=== PATIENT | male | born 1945 | race Caucasian/White ===

== ENCOUNTER 2020-07-09 08:02 | Outpatient (CLI) | payer MEDICARE ==
--- NOTE | 2020-07-09 09:20 | CT ---
EXAM: CT ABDOMEN AND PELVIS HISTORY: Prostate cancer. Follow-up exam. COMPARISON: 08/25/2017 Procedure: Multiple contiguous axial images were obtained and a CT of the abdomen and pelvis with IV contrast. C oronal reformats were performed. FINDINGS: Lower Chest: within normal limits. Vessels: Atherosclerosis. Mild dilatation of the infrarenal abdominal aorta, measuring 2.5 x 2.5 cm. Heart: Normal heart size. Abdomen: Portal vein:Patent Gallbladder: No calcified gallstones. Normal caliber wall. Liver: within normal limits. Pancreas: within normal limits. Spleen: within normal limits. Adrenals: within normal limits. Kidneys: Surgically absent right kidney. With regard the left kidney, no abnormal enhancement or enha ncing masses. Peritoneum: No ascites or free air, no fluid collection. Bowel: Limited evaluation due to the lack of oral contrast administration. No evidence of bowel obstr uction. Ileocecal junction is unremarkable. Normal caliber appendix. Scattered fecal material in a nondistended, nondilated colon. Mesentery and Retroperitoneum: No enlarged mesenteric or retroperitoneal lymph nodes. Abdominal Wall: within normal limits. Pelvis: Reproductive Organs: Prostate gland is not enlarged. There is evidence of calcifications. There is mi ld stranding of the periprostate. There is some nonspecific hyperdensity along the inferior right aspect of the prostate gland, measuring 0.9 cm. Pelvis: No mass, lymphadenopathy, free air or free fluid. Bladder: Mild mucosal thickening of the bladder may be due to posttreatment change. Component of blad tony wall thickening may also be due to inadequate distention. Bones: There are no lytic or blastic lesions in the osseous structures. 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 There are moderate degenerative changes along the right acetabulum. IMPRESSION: No evidence of metastases. Transcribed Date/Time: 07/09/2020 11:12 AM
[2020-07-09] MEDS ORDERED: Iopamidol 370 76% 100 ML VIAL ONE (10:24)
--- NOTE | 2020-07-09 12:52 | NM ---
Whole body bone scan: 07/09/2020 COMPARISON: 02/12/2016 HISTORY: Prostate neoplasm, rising PSA TECHNIQUE: Anterior and posterior whole-body imaging is obtained following the intravenous administra tion of 30.2 mCi technetium 99m labeled MDP FINDINGS: Physiologic radiotracer activity overlies the left kidney and urinary bladder. Right kidney is nonvisualized suggesting surgical absence. No calvarial, spinal, pelvic, or long bone lesions. No rib lesions are seen. IMPRESSION: No scintigraphic evidence of osseous metastatic disease.
== END 2020-07-09 08:03 | disposition home or self-care (01) ==
LOC: CT 08:02
PROVIDERS: ATTEND Urology
DX: C61 Malignant neoplasm of prostate (principal)
CPT/HCPCS: 74177; 78306; 82565; A9503

== ENCOUNTER 2020-08-27 08:18 | Outpatient (CLI) | payer MEDICARE ==
--- NOTE | 2020-08-27 09:03 | ULT ---
Renal ultrasound: 08/27/2020 COMPARISON:09/02/2018 HISTORY:Malignant neoplasm TECHNIQUE: Multiplanar grayscale sonographic imaging of thekidneys and urinary bladder FINDINGS:The right kidney is absent. Right renal fossa grossly unremarkable. Left kidney measures 12. 1 cm in craniocaudal dimension. No hydronephrosis, stone, or mass lesion noted on the left. Urinary bladder demonstrates no acute findings. 14 cc post void residual noted. Prostate gland is heterogeneo us and prominent, not well assessed on this exam. There are calcifications within the prostate gland. IMPRESSION:Absent right kidney. Left kidney appears unremarkable.
== END 2020-08-27 08:19 | disposition home or self-care (01) ==
LOC: BICULT 08:18
PROVIDERS: ATTEND Urology
DX: C61 Malignant neoplasm of prostate (principal); C67.2 Malignant neoplasm of lateral wall of bladder; C65.1 Malignant neoplasm of right renal pelvis; Z90.5 Acquired absence of kidney
CPT/HCPCS: 76770

== ENCOUNTER 2020-12-31 13:52 | Outpatient (CLI) | payer MEDICARE ==
[2020-12-31 15:28] LABS: Bilirubin Neg (Negative); Blood, Urine 250 (Negative); Glucose, Urine (Dipstick) Normal (Negative); Ketone, Urine 5 mg/dL (Negative); Leukocyte 25 (Negative); Nitrite Negative (Negative); Protein, Urine (Dipstick) 30 mg/dl (Neg-Trace); Specific Gravity, Urine 1.015 (1.002-1.036); Urobilinogen Normal mg/dL (Less than 2)
[2020-12-31 15:29] LABS: Clarity Hazy (Clear)
[2020-12-31 15:43] LABS: Anion Gap 18 mmol/L (10-20); BUN (Urea Nitrogen) 30 mg/dL (8.4-25.7); Calc. Creatinine Clearance 0 mL/min (70-130); Calcium 9.4 mg/dL (7.8-10.44); Carbon Dioxide 21 mmol/L (23-31); Chloride 105 mmol/L (98-107); Glucose 127 mg/dL (83-110); Potassium 4.9 mmol/L (3.5-5.1); Sodium 139 mmol/L (136-145)
[2020-12-31 15:45] LABS: Bacteria/HPF Rare-Few HPF (None Seen); RBC/HPF 21-50 HPF (0-3); Squamous Epithelial 0-3 HPF (0-3); WBC/HPF 0-3 HPF (0-3)
[2020-12-31 16:12] LABS: #Basophils 0.1 10x3/uL (0.0-0.2); #Monocytes 0.8 10x3/uL (0.0-1.1); #Neutrophils 6.5 10x3/uL (1.5-8.4); %Basophils 0.8 % (0.0-2.0); %Eosinophils 0.4 % (0.0-6.0); %Monocytes 8.2 % (0.0-10.0); %Neutrophils 70.4 % (40.0-75.0); Hemoglobin 13.5 g/dL (13.5-17.5); Mean Corpuscular HGB CONC 34.3 g/dL (32.0-36.0); Mean Corpuscular Hemoglobin 33.3 pg (27.0-33.0); Mean Platelet Volume 9.6 fl (7.4-10.4); Platelet Count 244 10x3/uL (150-450); RBC Distribution Width 13.2 % (11.5-14.5); Red Blood Cell (RBC) Count 4.06 10x6/uL (4.32-5.72); White Blood Cell (WBC) Count 9.2 10x3/uL (3.5-10.5)
[2021-01-01 04:50] LABS: SARS-CoV-2 PCR by NAA Not Detected (NotDetected)
== END 2020-12-31 13:53 | disposition home or self-care (01) ==
LOC: LABBT 13:52
PROVIDERS: ATTEND Urology
DX: Z01.818 Encounter for other preprocedural examination (principal); Z20.822 Contact with and (suspected) exposure to COVID-19
CPT/HCPCS: 80048; 81001; 85025; 87086; 93005; U0003; U0005; 87635; 93010

== ENCOUNTER 2021-01-03 06:14 | Day surgery (SDC) | payer MEDICARE ==
[2021-01-02 10:42] VITALS: BMI 22.6
[2021-01-03] MEDS ORDERED: Levofloxacin 500 mg/D5W 100 ml Premix Bag ONE (06:26)
[2021-01-03] MEDS ORDERED: Iothalamate Meglumine 60% 50 ML VIAL FS ONE (08:49)
[2021-01-03] MEDS ORDERED: Lidocaine 1% PF 5 ML VIAL ONE (09:01)
[2021-01-03] MEDS ORDERED: PROPOFOL 200 MG/20 ML VIAL ONE (09:01)
[2021-01-03] MEDS ORDERED: Fentanyl 100 MCG/2 ML VIAL ONE ×3 (09:01→10:51)
[2021-01-03] MEDS ORDERED: Oxybutynin 5 MG TAB ONE (10:30)
[2021-01-03] MEDS ORDERED: Phenazopyridine HCl 100 MG TAB ONE (10:30)
[2021-01-03] MEDS ORDERED: HYDROcodone/Acetaminophen 5/325 mg Tablet ONE (11:47)
== END 2021-01-03 12:30 | disposition home or self-care (01) ==
LOC: SDC 06:14
PROVIDERS: ATTEND Urology
PROC: 0T5B8ZZ Destruction of Bladder, Via Natural or Artificial Opening Endoscopic (ICD-10-PCS; principal; 2021-01-03)
PROC: 0T5D8ZZ Destruction of Urethra, Via Natural or Artificial Opening Endoscopic (ICD-10-PCS; 2021-01-03)
DX: C67.2 Malignant neoplasm of lateral wall of bladder (principal); D49.4 Neoplasm of unspecified behavior of bladder; D30.4 Benign neoplasm of urethra; E78.5 Hyperlipidemia, unspecified; E78.00 Pure hypercholesterolemia, unspecified; F17.290 Nicotine dependence, other tobacco product, uncomplicated; I11.9 Hypertensive heart disease without heart failure; Z85.46 Personal history of malignant neoplasm of prostate; Z79.82 Long term (current) use of aspirin; Z79.899 Other long term (current) drug therapy; Z90.5 Acquired absence of kidney
CPT/HCPCS: 52214; 52235; 74420; Q9961; 88307; J1956; J2704; J3010

== ENCOUNTER 2023-02-09 09:36 | Emergency (ER) | payer MEDICARE ==
[2023-02-09 10:55] LABS: #Monocytes 0.7 thou/uL (0.11-0.59); #Neutrophils 10.6 thou/uL (1.40-6.50); %Basophils 0.2 % (0.0-1.0); %Lymphocytes 5.5 % (21.0-51.0); %Monocytes 5.9 % (0.0-10.0); %Neutrophils 86.6 % (42.0-75.0); Hemoglobin 12.2 g/dL (14.0-18.0); Mean Corpuscular HGB CONC 35.4 g/dL (32.0-36.0); Mean Corpuscular Hemoglobin 34.6 pg (27.0-31.0); Mean Corpuscular Volume 97.7 fl (78.0-98.0); Mean Platelet Volume 9.9 fL (7.4-10.4); Platelet Count 137 10x3/uL (130-400); RBC Distribution Width 14.7 % (11.5-14.5); Red Blood Cell (RBC) Count 3.53 mill/uL (4.70-6.10); White Blood Cell (WBC) Count 12.3 10x3/uL (4.8-10.8)
[2023-02-09 11:18] LABS: ALT (SGPT) 10 U/L (8-55); AST (SGOT) 50 U/L (5-34); Albumin 3.6 g/dL (3.4-4.8); Alkaline Phosphatase 88 U/L (40-110); Anion Gap 15 mmol/L (10-20); BUN (Urea Nitrogen) 23 mg/dL (8.4-25.7); Bilirubin, Total 0.4 mg/dL (0.2-1.2); Calc. Creatinine Clearance 0 mL/min (70-130); Calcium 8.5 mg/dL (7.8-10.44); Carbon Dioxide 28 mmol/L (23-31); Chloride 97 mmol/L (98-107); Estimated GFR 88; Globulin 2.5 g/dL (2.4-3.5); Glucose 174 mg/dL (83-110); Lipase 84 U/L (8-78); Potassium 2.9 mmol/L (3.5-5.1); Protein, Total 6.1 g/dL (5.8-8.1); Sodium 137 mmol/L (136-145)
[2023-02-09 11:40] LABS: CKMB 3.4 ng/mL (0-6.6)
[2023-02-09] MEDS ORDERED: Potassium Chloride 20 MEQ TAB ONE (12:05)
[2023-02-09 12:23] LABS: Bacteria/HPF None Seen HPF (None Seen); Bilirubin Negative (Negative); Blood, Urine Trace (Negative); CAUTI Indications for Culture Dysuria,urgency,freq; Clarity Clear (Clear); Glucose, Urine (Dipstick) Normal (Negative); Ketone, Urine Negative (Negative); Leukocyte Negative Leu/uL (Negative); Nitrite Negative (Negative); Protein, Urine (Dipstick) 50 mg/dL (Neg-Trace); RBC/HPF 0-3 HPF (0-3); Specific Gravity, Urine 1.007 (1.002-1.036); Squamous Epithelial None Seen HPF (0-3); Urobilinogen Normal mg/dL (Less than 2); WBC/HPF 0-3 HPF (0-3)
[2023-02-09 12:25] LABS: Urine Culture Reflex No No
[2023-02-09 16:43] LABS: Troponin I 0.041 ng/mL (< 0.028)
== END 2023-02-09 19:17 | disposition short-term general hospital (02) ==
LOC: ERS 09:36
DX: I11.0 Hypertensive heart disease with heart failure (principal); I50.9 Heart failure, unspecified; R53.1 Weakness; D72.829 Elevated white blood cell count, unspecified; I25.10 Atherosclerotic heart disease of native coronary artery without angina pectoris; F17.210 Nicotine dependence, cigarettes, uncomplicated; Z79.82 Long term (current) use of aspirin
CPT/HCPCS: 36415; 71045; 80053; 81001; 82553; 83605; 83690; 83880; 84484; 85025; 93005